=== PATIENT | male | born 2000 | race Caucasian/White ===

== ENCOUNTER 2024-04-18 20:33 | Emergency (ER) | payer OTHER, SELFPAY ==
[2024-04-18 20:52] VITALS: BP 158/100
[2024-04-18 21:21] LABS: % Basophils 0.4 % (0-2); % Eosinophils 1.5 % (0-6); % Immature Granulocytes 0.3 % (0-0.5); % Lymphocytes 20.1 % (20.5-51.1); % Monocytes 7.2 % (1.7-9.3); % Neutrophils 70.5 % (42.2-75.2); Absolute Eosinophils 0.2 10^3/uL (0-0.7); Absolute Lymphocytes 2.1 10^3/uL (1.2-3.4); Absolute Monocytes 0.8 10^3/uL (0.1-0.6); Absolute Neutrophils 7.5 10^3/uL (1.4-6.5); Hematocrit 44.2 % (39.0-52.0); Hemoglobin 16.2 g/dL (13.0-18.0); Mean Corp Hgb Conc. 36.7 g/dL (33.0-37.0); Mean Corpuscular Hgb 31.6 pg (27.0-31.0); Mean Corpuscular Volume 86.2 fL (80.0-94.0); Mean Platelet Volume 9.2 fL (7.4-10.4); Nucleated Red Blood Cells % 0 % (-); Platelet Count 214 10^3/uL (130-400); Red Blood Cell Count 5.13 10^6/uL (4.70-6.10); Red Cell Dist. Width 11.7 % (11.5-14.5); White Blood Cell Count 10.7 10^3/uL (4.8-10.8)
[2024-04-18 21:33] LABS: ALT (SGPT) 26 U/L (0-50); AST (SGOT) 35 U/L (17-59); Albumin 5.2 g/dl (3.5-5.0); Alkaline Phosphatase 128 U/L (38-126); Blood Urea Nitrogen 13 mg/dl (9-20); Calcium 9.9 mg/dl (8.4-10.2); Carbon Dioxide 26 mmol/L (22-30); Chloride 103 mmol/L (98-107); Glucose 103 mg/dl (70-99); Potassium 3.8 mmol/L (3.5-5.1); Sodium 139 mmol/L (135-145); Total Bilirubin 0.7 mg/dl (0.2-1.3); Total Protein 8.5 g/dl (6.3-8.2); eGFR > 60.00
[2024-04-18 21:34] LABS: Lactic Acid 0.9 mmol/L (0.7-2.0)
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
[2024-04-18 23:46] VITALS: BMI 25.9
[2024-04-18] MEDS: ADACEL 0.5 ML IM (23:50)
[2024-04-18] MEDS: SILVADENE 1 APPLIC TOPICAL (23:57)
[2024-04-19] MEDS: CLEOCIN 450 MG PO (00:08)
[2024-04-19 00:17] VITALS: BP 130/90
== END 2024-04-19 00:17 | disposition home or self-care (01) ==
LOC: EMR 20:33
PROVIDERS: Student in an Organized Health Care Education/Training Program; EMERGENCY PHYSICIAN Emergency Medicine; FAMILY PHYSICIAN Internal Medicine
DX: L03.115 Cellulitis of right lower limb (principal); T24.031A Burn of unspecified degree of right lower leg, initial encounter; T24.231A Burn of second degree of right lower leg, initial encounter; X17.XXXA Contact with hot engines, machinery and tools, initial encounter; R03.0 Elevated blood-pressure reading, without diagnosis of hypertension; Z23 Encounter for immunization
CPT/HCPCS: 99283; 90471; 16020; 80053; 83605; 85025; 87040; 87070; 87147; 87186; 87205; 90715

== ENCOUNTER → 2024-04-22 07:44 | Outpatient (REF) | payer OTHER, SELFPAY | LOC: WOUND 07:44 | PROVIDERS: ATTENDING PHYSICIAN Surgery; FAMILY PHYSICIAN Physician Assistant | DX: T24.231A Burn of second degree of right lower leg, initial encounter (principal); Z72.0 Tobacco use; X17.XXXA Contact with hot engines, machinery and tools, initial encounter | CPT/HCPCS: 99203 ==

== ENCOUNTER → 2024-04-29 08:46 | Outpatient (REF) | payer OTHER, SELFPAY | LOC: WOUND 08:46 | PROVIDERS: ATTENDING PHYSICIAN Surgery; FAMILY PHYSICIAN Physician Assistant | DX: T24.231A Burn of second degree of right lower leg, initial encounter (principal); Z72.0 Tobacco use; X17.XXXA Contact with hot engines, machinery and tools, initial encounter | CPT/HCPCS: 99213 ==

== ENCOUNTER → 2024-05-13 08:53 | Outpatient (REF) | payer OTHER, SELFPAY | LOC: WOUND 08:53 | PROVIDERS: ATTENDING PHYSICIAN Surgery; FAMILY PHYSICIAN Physician Assistant | DX: T24.231A Burn of second degree of right lower leg, initial encounter (principal); X58.XXXA Exposure to other specified factors, initial encounter | CPT/HCPCS: 99212 ==